=== PATIENT | female | born 1965 | race Caucasian/White ===

== ENCOUNTER 2017-05-01 11:41 | Inpatient (IN) | payer MEDICAID ==
[~2017-05-01] VITALS: Ht 160 cm; Wt 88.3 kg
[2017-05-01] MEDS ORDERED: SODIUM CHLORIDE 0.9% 1,000 ML IV ONE (11:57)
[2017-05-01] MEDS ORDERED: ALBUTEROL SULF 2.5 MG/0.5ML(0.5%) NEB SOLN HHN ONE (12:00)
[2017-05-01] MEDS ORDERED: IPRATROPIUM BROM 0.5 MG/2.5ML INH SOL HHN ONE (12:00)
[2017-05-01] MEDS ORDERED: LEVOFLOXACIN 500MG 100 ML IV ONE (12:00)
[2017-05-01 13:32] LABS: Hematocrit 29.7 % (36.0-46.0); Mean Corpuscular Hemoglobin 22.7 pg (28.0-32.0)
[2017-05-01 13:34] LABS: Hemoglobin 8.9 g/dL (12.2-16.2); Mean Corpuscular Hgb Conc. 29.8 g/dL (32.0-36.0); Mean Corpuscular Volume 76.4 fL (80.0-100.0); Platelet Count (auto) 525 10^3/uL (140-450); Red Cell Distribution Width 19.8 % (11.8-14.3); White Blood Cell 26.2 10^3/uL (4.4-10.8)
[2017-05-01 13:42] LABS: Lactic Acid w/Reflex 3.9 mmol/L (0.4-2.0)
[2017-05-01] MEDS ORDERED: ACETAMINOPHEN 325 MG TAB PO ONE (13:45)
[2017-05-01 14:02] LABS: Alanine Aminotransferase 40 U/L (13-56); Albumin 3.1 g/dL (3.4-5.0); Alkaline Phosphatase 78 U/L (45-117); Anion Gap 12 (5-15); Aspartate Aminotransferase 20 U/L (15-37); BUN/Creatinine Ratio 9.8; Bilirubin, Total 1.1 mg/dL (0.2-1.0); Blood Urea Nitrogen 20 mg/dL (7-18); Calcium 7.7 mg/dL (8.5-10.1); Carbon Dioxide 20 mmol/L (21-32); Chloride 103 mmol/L (98-107); GFR African American 33 mL/min; GFR Non-African American 27 mL/min; Glucose 89 mg/dL (74-106); Magnesium 1.6 mg/dL (1.6-2.6); Potassium 4.3 mmol/L (3.5-5.1); Sodium 135 mmol/L (136-145); Total Protein 6.7 g/dL (6.4-8.2)
[2017-05-01 14:22] LABS: Basophils % (manual) 0 (0.0-2.0); Blast Cells 0; Eosinophils % (manual) 0 (0-7); Promyelocytes % 0; Reactive Lymphocytes 0
[2017-05-01 14:42] LABS: Band Neutrophils % (manual) 1; Lymphocytes % (manual) 3 (10.0-50.0); Metamyelocytes % 2; Monocytes % (manual) 1 (0-12); Myelocytes % 1
[2017-05-01] MEDS ORDERED: LORazepam 0.5 MG TAB PO PRN (15:15)
[2017-05-01] MEDS ORDERED: OSELTAMIVIR 75 MG CAP PO ONE (15:15)
[2017-05-01] MEDS ORDERED: NITROGLYCERIN 0.4 MG SL TAB SL PRN (15:15)
[2017-05-01] MEDS ORDERED: ACETAMINOPHEN 500 MG TAB PO PRN (15:15)
[2017-05-01] MEDS ORDERED: PROMETHAZINE HCL 25 MG/ML 1ML IV PRN (15:15)
[2017-05-01] MEDS ORDERED: TEMAZEPAM 15 MG CAP PO PRN (15:15)
[2017-05-01] MEDS ORDERED: MORPHINE SULF INJ 2 MG/ML SYRINGE 1ML IV PRN ×2 (15:15)
[2017-05-01] MEDS ORDERED: PROMETHAZINE W/CODEINE 5 ML ORAL SYRUP PO ONE (16:00)
[2017-05-01] MEDS: SODIUM CHLORIDE 0.9% 1,000 ML IV SCH ×2 (16:21→23:07)
[2017-05-01 16:22] VITALS: BP 142/76
[2017-05-01 19:10] VITALS: BP 86/52
[2017-05-01] MEDS: ALBUTEROL SULF 2.5 MG/0.5ML(0.5%) NEB SOLN NEB SCH (19:17)
[2017-05-01] MEDS: IPRATROPIUM BROM 0.5 MG/2.5ML INH SOL NEB SCH (19:17)
[2017-05-01] MEDS: HYDROcodone-ACET 5/325MG TAB PO PRN (21:22)
[2017-05-01] MEDS: CLINDAMYCIN 600MG IV 50 ML IV SCH (22:09)
[2017-05-01] MEDS: OSELTAMIVIR 75 MG CAP PO SCH (22:09)
[2017-05-01 22:52] VITALS: BP 86/52
[2017-05-02] VITALS (8 sets, daily range): BP systolic 89–144; BP diastolic 51–66
[2017-05-02] MEDS: IPRATROPIUM BROM 0.5 MG/2.5ML INH SOL NEB SCH ×4 (00:03→19:30)
[2017-05-02] MEDS: ALBUTEROL SULF 2.5 MG/0.5ML(0.5%) NEB SOLN NEB SCH ×4 (00:03→19:30)
[2017-05-02] MEDS: HYDROcodone-ACET 5/325MG TAB PO PRN ×3 (03:23→20:36)
[2017-05-02] MEDS ORDERED: SODIUM CHLORIDE 0.9% 1,000 ML IV ONE (03:30)
[2017-05-02] MEDS: ALBUTEROL SULF 2.5 MG/0.5ML(0.5%) NEB SOLN NEB PRN ×2 (04:50→09:29)
[2017-05-02] MEDS: CLINDAMYCIN 600MG IV 50 ML IV SCH ×3 (05:56→22:05)
[2017-05-02 06:35] LABS: Red Blood Cells 3.34 10^6/uL (4.0-5.20)
[2017-05-02 06:37] LABS: Hematocrit 25.7 % (36.0-46.0); Hemoglobin 7.6 g/dL (12.2-16.2); Mean Corpuscular Hemoglobin 22.8 pg (28.0-32.0); Mean Corpuscular Hgb Conc. 29.6 g/dL (32.0-36.0); Platelet Count (auto) 433 10^3/uL (140-450); Red Cell Distribution Width 19.5 % (11.8-14.3); White Blood Cell 19.1 10^3/uL (4.4-10.8)
[2017-05-02 06:42] LABS: Basophils % (manual) 0 (0.0-2.0); Blast Cells 0; Eosinophils % (manual) 0 (0-7); Metamyelocytes % 0; Myelocytes % 0; Promyelocytes % 0; Reactive Lymphocytes 0
[2017-05-02 07:01] LABS: Albumin 2.7 g/dL (3.4-5.0); BUN/Creatinine Ratio 15.6; Bilirubin, Total 0.7 mg/dL (0.2-1.0); Calcium 7.3 mg/dL (8.5-10.1); Potassium 4.7 mmol/L (3.5-5.1); Total Protein 6.2 g/dL (6.4-8.2)
[2017-05-02 07:22] LABS: Band Neutrophils % (manual) 8; Lymphocytes % (manual) 5 (10.0-50.0); Monocytes % (manual) 3 (0-12)
[2017-05-02] MEDS: SODIUM CHLORIDE 0.9% 1,000 ML IV SCH ×3 (08:36→15:49)
[2017-05-02] MEDS: OSELTAMIVIR 75 MG CAP PO SCH ×2 (09:45→22:06)
[2017-05-02] MEDS: PANTOPRAZOLE 40 MG TAB PO SCH (09:45)
[2017-05-02] MEDS: cefTRIAXone 1GM/10ml IVPUSH 10 ML IV SCH (09:46)
[2017-05-02] MEDS: ENOXAPARIN SOD 40 MG/0.4 ML SYRINGE SC SCH (09:46)
[2017-05-02] MEDS: AZITHROMYCIN 500MG/ 250ML 250 ML IV SCH (09:46)
[2017-05-02] MEDS: PROMETHAZINE W/CODEINE 5 ML ORAL SYRUP PO PRN (20:35)
[2017-05-03] MEDS: IPRATROPIUM BROM 0.5 MG/2.5ML INH SOL NEB SCH ×4 (00:56→18:03)
[2017-05-03] MEDS: ALBUTEROL SULF 2.5 MG/0.5ML(0.5%) NEB SOLN NEB SCH ×4 (00:56→18:03)
[2017-05-03] MEDS: SODIUM CHLORIDE 0.9% 1,000 ML IV SCH ×3 (01:36→21:15)
[2017-05-03] MEDS: HYDROcodone-ACET 5/325MG TAB PO PRN ×2 (02:39→17:45)
[2017-05-03] MEDS: PROMETHAZINE W/CODEINE 5 ML ORAL SYRUP PO PRN ×3 (02:39→17:42)
[2017-05-03] MEDS: ALBUTEROL SULF 2.5 MG/0.5ML(0.5%) NEB SOLN NEB PRN ×2 (02:48→21:56)
[2017-05-03 05:29] LABS: Basophils # (auto) 0 uL; Basophils % (auto) 0.2 % (0.0-2.0); Eosinophils # (auto) 0.1 uL; Eosinophils % (auto) 0.8 % (0.0-7.0); Hematocrit 23.8 % (36.0-46.0); Hemoglobin 7.4 g/dL (12.2-16.2); Lymphocytes # (auto) 1.9 uL; Lymphocytes % (auto) 10.8 % (10.0-50.0); Mean Corpuscular Hemoglobin 23.4 pg (28.0-32.0); Mean Corpuscular Hgb Conc. 30.9 g/dL (32.0-36.0); Mean Corpuscular Volume 75.8 fL (80.0-100.0); Monocytes # (auto) 0.7 uL; Neutrophils # (auto) 14.5 uL; Neutrophils % (auto) 84.2 % (37.0-80.0); Platelet Count (auto) 410 10^3/uL (140-450); Red Blood Cells 3.14 10^6/uL (4.0-5.20); Red Cell Distribution Width 19.1 % (11.8-14.3); White Blood Cell 17.2 10^3/uL (4.4-10.8)
[2017-05-03 05:44] LABS: % Iron Saturation 2.6 % (15-50)
[2017-05-03 05:45] LABS: Albumin 2.3 g/dL (3.4-5.0); Calcium 7.7 mg/dL (8.5-10.1); Potassium 4.2 mmol/L (3.5-5.1)
[2017-05-03 05:48] LABS: BUN/Creatinine Ratio 23.6
[2017-05-03 05:51] LABS: Bilirubin, Total 0.5 mg/dL (0.2-1.0); Total Protein 6.2 g/dL (6.4-8.2)
[2017-05-03] MEDS: CLINDAMYCIN 600MG IV 50 ML IV SCH ×3 (05:53→21:58)
[2017-05-03 05:56] VITALS: BP 84/49
[2017-05-03 07:40] VITALS: BP 96/56
[2017-05-03] MEDS: cefTRIAXone 1GM/10ml IVPUSH 10 ML IV SCH (09:43)
[2017-05-03] MEDS: AZITHROMYCIN 500MG/ 250ML 250 ML IV SCH (09:43)
[2017-05-03] MEDS: ENOXAPARIN SOD 40 MG/0.4 ML SYRINGE SC SCH (09:44)
[2017-05-03] MEDS: OSELTAMIVIR 75 MG CAP PO SCH (09:44)
[2017-05-03] MEDS: PANTOPRAZOLE 40 MG TAB PO SCH (09:44)
[2017-05-03 12:15] VITALS: BP 108/66
[2017-05-03 17:02] VITALS: BP 121/77
[2017-05-03 22:35] VITALS: BP 113/57
[2017-05-04] MEDS: ALBUTEROL SULF 2.5 MG/0.5ML(0.5%) NEB SOLN NEB SCH ×5 (00:20→23:16)
[2017-05-04] MEDS: IPRATROPIUM BROM 0.5 MG/2.5ML INH SOL NEB SCH ×5 (00:20→23:16)
[2017-05-04] MEDS: HYDROcodone-ACET 5/325MG TAB PO PRN ×3 (00:56→17:59)
[2017-05-04] MEDS: PROMETHAZINE W/CODEINE 5 ML ORAL SYRUP PO PRN ×3 (03:52→17:59)
[2017-05-04 04:45] VITALS: BP 131/83
[2017-05-04] MEDS: CLINDAMYCIN 600MG IV 50 ML IV SCH ×3 (05:52→21:33)
[2017-05-04] MEDS: SODIUM CHLORIDE 0.9% 1,000 ML IV SCH ×2 (05:52→17:15)
[2017-05-04] MEDS ORDERED: PNEUMOCOCCAL VACC POLYS 25 MCG/0.5 ML VIAL IM ONE ×2 (06:00→06:45)
[2017-05-04] MEDS ORDERED: INFLUENZA QUAD 2017-2018 0.5 ML SYRG IM ONE (06:00)
[2017-05-04 09:18] VITALS: BP 117/69
[2017-05-04 09:31] VITALS: BP 117/69
[2017-05-04] MEDS: AZITHROMYCIN 500MG/ 250ML 250 ML IV SCH (09:41)
[2017-05-04] MEDS: ENOXAPARIN SOD 40 MG/0.4 ML SYRINGE SC SCH (09:41)
[2017-05-04] MEDS: PANTOPRAZOLE 40 MG TAB PO SCH (09:41)
[2017-05-04] MEDS: cefTRIAXone 1GM/10ml IVPUSH 10 ML IV SCH (09:41)
[2017-05-04 12:09] VITALS: BP 120/72
[2017-05-04 17:04] VITALS: BP 151/94
[2017-05-04 23:37] VITALS: BP 118/59
[2017-05-05] MEDS: PROMETHAZINE W/CODEINE 5 ML ORAL SYRUP PO PRN ×4 (00:44→21:05)
[2017-05-05] MEDS: HYDROcodone-ACET 5/325MG TAB PO PRN ×4 (00:44→21:05)
[2017-05-05] MEDS: SODIUM CHLORIDE 0.9% 1,000 ML IV SCH ×2 (03:15→13:15)
[2017-05-05] MEDS: IPRATROPIUM BROM 0.5 MG/2.5ML INH SOL NEB SCH ×3 (05:09→18:13)
[2017-05-05] MEDS: ALBUTEROL SULF 2.5 MG/0.5ML(0.5%) NEB SOLN NEB SCH ×3 (05:09→18:13)
[2017-05-05 05:39] VITALS: BP 139/83
[2017-05-05] MEDS: CLINDAMYCIN 600MG IV 50 ML IV SCH ×3 (05:45→21:05)
[2017-05-05 07:24] LABS: Hemoglobin 8.1 g/dL (12.2-16.2); Mean Corpuscular Volume 73.3 fL (80.0-100.0)
[2017-05-05 07:26] LABS: Hematocrit 26.1 % (36.0-46.0); Mean Corpuscular Hemoglobin 22.8 pg (28.0-32.0); Mean Corpuscular Hgb Conc. 31.1 g/dL (32.0-36.0); Platelet Count (auto) 552 10^3/uL (140-450); Red Blood Cells 3.56 10^6/uL (4.0-5.20); White Blood Cell 9.1 10^3/uL (4.4-10.8)
[2017-05-05 07:27] LABS: Red Cell Distribution Width 20.3 % (11.8-14.3)
[2017-05-05 07:28] LABS: Basophils % (manual) 0 (0.0-2.0); Blast Cells 0; Metamyelocytes % 0; Myelocytes % 0; Promyelocytes % 0; Reactive Lymphocytes 0
[2017-05-05 07:47] LABS: Albumin 2.5 g/dL (3.4-5.0); BUN/Creatinine Ratio 19.3; Bilirubin, Total 0.3 mg/dL (0.2-1.0); Calcium 8.8 mg/dL (8.5-10.1); Potassium 3.8 mmol/L (3.5-5.1)
[2017-05-05 08:00] VITALS: BP 139/83
[2017-05-05 08:21] LABS: Band Neutrophils % (manual) 1; Eosinophils % (manual) 1 (0-7); Lymphocytes % (manual) 17 (10.0-50.0); Monocytes % (manual) 9 (0-12)
[2017-05-05 09:00] VITALS: BP 129/78
[2017-05-05] MEDS: PANTOPRAZOLE 40 MG TAB PO SCH (09:36)
[2017-05-05] MEDS: AZITHROMYCIN 500MG/ 250ML 250 ML IV SCH (09:36)
[2017-05-05] MEDS: cefTRIAXone 1GM/10ml IVPUSH 10 ML IV SCH (09:37)
[2017-05-05] MEDS: ENOXAPARIN SOD 40 MG/0.4 ML SYRINGE SC SCH (09:37)
[2017-05-05 13:00] VITALS: BP 160/95
[2017-05-05 17:00] VITALS: BP 153/75
[2017-05-05 17:17] LABS: Urine Bacteria None Seen /hpf (None Seen)
[2017-05-05 18:20] LABS: Urine Blood Negative /uL (Negative); Urine Specific Gravity 1.008 (1.001-1.035)
[2017-05-05 18:21] LABS: Urine WBC 2 /hpf (0 - 5)
[2017-05-05 22:00] VITALS: BP 155/93
[2017-05-06] MEDS: ALBUTEROL SULF 2.5 MG/0.5ML(0.5%) NEB SOLN NEB SCH ×5 (00:25→23:55)
[2017-05-06] MEDS: IPRATROPIUM BROM 0.5 MG/2.5ML INH SOL NEB SCH ×5 (00:25→23:54)
[2017-05-06] MEDS: SODIUM CHLORIDE 0.9% 1,000 ML IV SCH ×2 (01:12→09:20)
[2017-05-06 05:00] VITALS: BP 153/96
[2017-05-06] MEDS: PROMETHAZINE W/CODEINE 5 ML ORAL SYRUP PO PRN ×3 (05:18→19:10)
[2017-05-06] MEDS: HYDROcodone-ACET 5/325MG TAB PO PRN ×3 (05:18→19:10)
[2017-05-06] MEDS: CLINDAMYCIN 600MG IV 50 ML IV SCH (05:21)
[2017-05-06 08:00] VITALS: BP_SYST 122; BP_SYST 126; BP_DIAS 64; BP_DIAS 86
[2017-05-06] MEDS: cefTRIAXone 1GM/10ml IVPUSH 10 ML IV SCH (09:19)
[2017-05-06] MEDS: PANTOPRAZOLE 40 MG TAB PO SCH (09:19)
[2017-05-06] MEDS: AZITHROMYCIN 500MG/ 250ML 250 ML IV SCH (09:19)
[2017-05-06] MEDS: ENOXAPARIN SOD 40 MG/0.4 ML SYRINGE SC SCH (09:20)
[2017-05-06 12:00] VITALS: BP 143/98
[2017-05-06] MEDS: FERROUS SULFATE 325 MG TAB PO SCH ×2 (12:02→17:54)
[2017-05-06 16:28] VITALS: BP 129/78
[2017-05-06 20:00] VITALS: BP 117/79
[2017-05-06 22:00] VITALS: BP 117/79
[2017-05-07] VITALS (8 sets, daily range): BP systolic 120–135; BP diastolic 69–86
[2017-05-07] MEDS: HYDROcodone-ACET 5/325MG TAB PO PRN ×4 (04:05→22:00)
[2017-05-07] MEDS: PROMETHAZINE W/CODEINE 5 ML ORAL SYRUP PO PRN ×4 (04:06→22:01)
[2017-05-07] MEDS: ALBUTEROL SULF 2.5 MG/0.5ML(0.5%) NEB SOLN NEB SCH (06:18)
[2017-05-07] MEDS: IPRATROPIUM BROM 0.5 MG/2.5ML INH SOL NEB SCH (06:18)
[2017-05-07] MEDS: FERROUS SULFATE 325 MG TAB PO SCH ×2 (07:29→16:13)
[2017-05-07] MEDS: cefTRIAXone 1GM/10ml IVPUSH 10 ML IV SCH (09:32)
[2017-05-07] MEDS: AZITHROMYCIN 500MG/ 250ML 250 ML IV SCH (09:32)
[2017-05-07] MEDS: PANTOPRAZOLE 40 MG TAB PO SCH (09:33)
[2017-05-07] MEDS: ENOXAPARIN SOD 40 MG/0.4 ML SYRINGE SC SCH (09:33)
[2017-05-07] MEDS ORDERED: SOTALOL HCL 80 MG TAB PO SCH (22:00)
[2017-05-07] MEDS ORDERED: METOPROLOL TARTRATE 25 MG TAB PO SCH (22:00)
[2017-05-08 04:43] VITALS: BP 127/76
[2017-05-08] MEDS: HYDROcodone-ACET 5/325MG TAB PO PRN (06:48)
[2017-05-08 07:38] LABS: Basophils # (auto) 0.1 uL; Eosinophils # (auto) 0.6 uL; Hemoglobin 9.3 g/dL (12.2-16.2); Monocytes # (auto) 0.7 uL
[2017-05-08 07:41] LABS: Basophils % (auto) 0.8 % (0.0-2.0); Eosinophils % (auto) 4.8 % (0.0-7.0); Hematocrit 30.5 % (36.0-46.0); Lymphocytes % (auto) 16.2 % (10.0-50.0); Mean Corpuscular Hemoglobin 22.4 pg (28.0-32.0); Mean Corpuscular Hgb Conc. 30.6 g/dL (32.0-36.0); Mean Corpuscular Volume 73.4 fL (80.0-100.0); Monocytes % (auto) 5.7 % (0.0-12.0); Neutrophils # (auto) 9.2 uL; Neutrophils % (auto) 72.5 % (37.0-80.0); Nucleated Red Blood Cells % 0.1 %; Red Blood Cells 4.16 10^6/uL (4.0-5.20); White Blood Cell 12.6 10^3/uL (4.4-10.8)
[2017-05-08 07:50] LABS: BUN/Creatinine Ratio 23.8; Potassium 4.4 mmol/L (3.5-5.1)
[2017-05-08 08:04] LABS: Red Cell Distribution Width 20.5 % (11.8-14.3)
[2017-05-08 08:10] LABS: Platelet Count (auto) 851 10^3/uL (140-450)
[2017-05-08 08:19] VITALS: BP 119/72
[2017-05-08] MEDS: FERROUS SULFATE 325 MG TAB PO SCH (08:41)
[2017-05-08] MEDS: PANTOPRAZOLE 40 MG TAB PO SCH (09:57)
[2017-05-08] MEDS: cefTRIAXone 1GM/10ml IVPUSH 10 ML IV SCH ×2 (09:59→10:04)
[2017-05-08] MEDS ORDERED: AZITHROMYCIN 250 MG TAB PO SCH (10:00)
[2017-05-08] MEDS ORDERED: ASPirin-EC 81 mg tab PO SCH (10:00)
[2017-05-08] MEDS: ENOXAPARIN SOD 40 MG/0.4 ML SYRINGE SC SCH (10:00)
[2017-05-08] MEDS ORDERED: AMOX-263 PO (10:14)
[2017-05-08] MEDS ORDERED: ASP81EC PO (10:14)
[2017-05-08] MEDS ORDERED: ATOR10TA52 PO (10:18)
[2017-05-08] MEDS ORDERED: LISI2.5T47 PO (10:18)
== END 2017-05-08 14:25 | disposition home or self-care (01) | DRG 720 ==
LOC: ER 11:41 → TELE 11:42 → TELE-CENTR 18:31 → CENTRAL 05-06 12:12
PROVIDERS: ADMIT Internal Medicine; ATTEND Internal Medicine
DX: A41.9 Sepsis, unspecified organism (principal); N17.0 Acute kidney failure with tubular necrosis; E43 Unspecified severe protein-calorie malnutrition; J13 Pneumonia due to Streptococcus pneumoniae; J44.0 Chronic obstructive pulmonary disease with (acute) lower respiratory infection; F17.210 Nicotine dependence, cigarettes, uncomplicated; D50.9 Iron deficiency anemia, unspecified; I10 Essential (primary) hypertension; E66.9 Obesity, unspecified; E78.5 Hyperlipidemia, unspecified; F19.10 Other psychoactive substance abuse, uncomplicated; G47.00 Insomnia, unspecified; Z90.89 Acquired absence of other organs; Z68.34 Body mass index [BMI] 34.0-34.9, adult; Z71.6 Tobacco abuse counseling; Z23 Encounter for immunization; Z87.01 Personal history of pneumonia (recurrent)
CPT/HCPCS: 36415; 36600; 71046; 80048; 80053; 80061; 81001; 82805; 83540; 83550; 83605; 83735; 83880; 84484; 85007; 85025; 85027; 87040; 87070; 87077; 87186; 87205; 87400; 93005; 94640; 94644; 94761; 96365; 96375; J1956; J3490